=== PATIENT | female | born 1955 | race Caucasian/White ===

== ENCOUNTER 2020-01-12 12:16 | Emergency (ER) | payer MEDICARE ==
[~2020-01-12] VITALS: Ht 172.7 cm; Wt 90.7 kg
--- NOTE | 2020-01-12 12:35 | NUR ---
ED Nurse Note: PT ARRIVED TO ED C/O COUGH, HEADACHES, LOSS OF TASTE AND SMELL FOR 1 WEEK. PT REPORTS SHE WAS EXPOSED TO SOMEONE WITH POSITIVE COVID AT WORK. PT REPORTS SHE HAS A PROSTHETIC RIGHT BREAST DUE TO PREVIOUS BREAST CANCER. PT ON Pulselocker MONITOR AND PLACED IN GOWN
[2020-01-12 12:41] VITALS: BP 153/74
--- NOTE | 2020-01-12 13:00 | NUR ---
ED Nurse Note: COVID TEST SENT TO LAB
--- NOTE | 2020-01-12 13:15 | NUR ---
ED Nurse Note: XRAY AT BEDSIDE
[2020-01-12] MEDS ORDERED: PREDNISONE20 MG ORAL (13:35)
[2020-01-12] MEDS ORDERED: ZITHROMAX250 MG ORAL (13:35)
[2020-01-12] MEDS ORDERED: ALBUTEROL SULF8.5 G1 INH (13:35)
[2020-01-12] MEDS ORDERED: PROMETHAZINE-C118 M1 ORAL (13:35)
[2020-01-12 13:42] VITALS: BP 144/79
--- NOTE | 2020-01-12 13:42 | NUR ---
ER DISCHARGE NOTE: Patient is cleared to be discharged per ERMD, pt is aox4, on room air, with stable vital signs. pt was given dc and prescription instructions, pt was able to verbalize understanding, pt id band REMOVED. pt is able to ambulate with steady gait. pt took all belongings.
--- NOTE | 2020-01-12 14:53 | Emergency Room Report ---
History of Present Illness General Chief Complaint: General Complaint Source: Patient Present Illness HPI 64-year-old female presents complaining of cough and body aches for the last few days. Pain is dull, 8 out of 10, nonradiating. States she also lost her sense of smell. States she was recently exposed to someone that is Covid positive. Denies chest pain or shortness of breath. No other aggravating relieving factors. 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 Patient History Past Medical History: other - breast ca Past Surgical History: none Pertinent Family History: none Social History: Denies: smoking, alcohol use, drug use Now: No Immunizations: UTD Reviewed Nursing Documentation: PMH: Agreed; PSxH: Agreed Nursing Documentation-PMH Past Medical History: No History, Except For Hx Cancer: Yes - right breast Review of Systems All Other Systems: negative except mentioned in HPI Physical Exam Vital Signs Date Time Temp Pulse Resp B/P (MAP) Pulse Ox O2 Delivery O2 Flow Rate FiO2 01/12/20 12:36 98.4 76 20 152/74 (100) 100 Room Air Sp02 EP Interpretation: reviewed, normal General Appearance: no apparent distress, alert, GCS 15, non-toxic Head: normocephalic, atraumatic Eyes: bilateral eye normal inspection, bilateral eye PERRL ENT: hearing grossly normal, normal pharynx, no angioedema, normal voice Neck: full range of motion, supple/symm/no masses Respiratory: chest non-tender, lungs clear, normal breath sounds, speaking full sentences Cardiovascular #1: regular rate, rhythm, no edema Cardiovascular #2: 2+ carotid (R), 2+ carotid (L), 2+ radial (R), 2+ radial (L), 2+ dorsalis pedis (R), 2+ dorsalis pedis (L) Gastrointestinal: normal bowel sounds, non tender, soft, non-distended, no guarding, no rebound Rectal: deferred Genitourinary: normal inspection, no CVA tenderness Musculoskeletal: back normal, normal range of motion, gait/station normal, non- tender Neurologic: alert, motor strength/tone normal, oriented x3, sensory intact, responsive, speech normal Psychiatric: judgement/insight normal, memory normal, mood/affect normal, no suicidal/homicidal ideation Reflexes: 3+ bicep (R), 3+ bicep (L), 3+ tricep (R), 3+ tricep (L), 3+ knee (R), 3+ knee (L) Lymphatic: no adenopathy Medical Decision Making Diagnostic Impression: Primary Impression: Upper respiratory infection Qualified Codes: J06.9 - Acute upper respiratory infection, unspecified ER Course Hospital Course 64-year-old female presents with cough, body aches, loss of smell Differential diagnoses include: URI, pharyngitis, otitis media, asthma Clinical course Patient placed on stretcher. Isolation. I wore full PPE. Lungs clear. No signs of distress. Chest x-ray no focal consolidation. I discussed findings with patient. Vitals stable. No hypoxia. Discussed the possibility of Covid given presentation. We will check a Covid swab. Will return in 48 hours the results. In the meanwhile I recommend Strict isolation precautions. Will prescribe antibiotics, steroids, inhaler, cough medication. I also recommend purchasing a pulse oximeter. If her oxygen level drops below 92% she needs to return to the ED Diagnosis - URI Stable and discharged home. Instructed to followup with PMD. Return to ED if symptoms recur or worsen Chest X-Ray Diagnostic Results Chest X-Ray Diagnostic Results : Chest X-Ray Ordered: Yes # of Views/Limited/Complete: 1 View Indication: Other - cough EP Interpretation: Yes Interpretation: no consolidation, no effusion, no pneumothorax, no acute cardiopulmonary disease Impression: No acute disease Electronically Signed by: Electronically signed by Sravan Hawthorne MD Last Vital Signs Date Time Temp Pulse Resp B/P (MAP) Pulse Ox O2 Delivery O2 Flow Rate FiO2 01/12/20 13:42 98.0 79 17 144/79 100 Room Air Status: improved Disposition: HOME, SELF-CARE Condition: Stable Scripts Albuterol Sulfate* (Albuterol Sulfate Hfa*) 8.5 Gm Hfa.aer.ad 2 PUFF INH Q6H for cough, #1 INH Prov: Sravan Hawthorne MD 01/12/20 Prednisone* (PREDNISONE*) 20 Mg Tablet 40 MG ORAL DAILY, #10 TAB Prov: Sravan Hawthorne MD 01/12/20 Azithromycin* (ZITHROMAX*) 250 Mg Tablet 250 MG ORAL DAILY, #6 TAB 0 Refills Take two tables once daily for 1 day, then one tablet once daily for 4 days. Prov: Sravan Hawthorne MD 01/12/20 Codeine/Promethazine Hcl* (PROMETHAZINE-CODEINE SYRUP*) 118 Ml Syrup 5 ML ORAL Q6H PRN for For Cough, #118 ML 0 Refills Prov: Sravan Hawthorne MD 01/12/20 Referrals: NOT CHOSEN IPA/,REFERRING (PCP) [facility] Patient Instructions: Upper Respiratory Infection, Adult, [id number] Additional Instructions: purchase a pulse oximeter. if your oxygen drops below 92% then you need to return to the ER. your COVID test should be resulted in 48 hours. Sravan Hawthorne MD Jan 12, 2020 14:53
--- NOTE | 2020-01-12 15:56 | Diagnostic Imaging Report ---
Indication: Cough Technique: One view of the chest Comparison: none Findings: Lungs and pleural spaces are clear. The heart size is normal. Impression: Negative
--- NOTE | 2020-01-14 11:25 | NUR ---
ED Nurse Note: PER PT., SHE WANTS TO GET HER COVID RESULT FAX OVER TO
== END 2020-01-12 13:40 | disposition home or self-care (01) ==
LOC: EMR 13:39
DX: U07.1 COVID-19 (principal); J06.9 Acute upper respiratory infection, unspecified; Z85.3 Personal history of malignant neoplasm of breast
CPT/HCPCS: 71045; 99283; U0004

== ENCOUNTER 2020-01-25 22:08 | Emergency (ER) | payer MEDICARE ==
[~2020-01-25] VITALS: Ht 172.7 cm; Wt 90.7 kg
[~2020-01-25 22:08] MED LIST: ALBUTEROL SULF8.5 G1 INH; PREDNISONE20 MG ORAL; PROMETHAZINE-C118 M1 ORAL; ZITHROMAX250 MG ORAL
--- NOTE | 2020-01-25 22:20 | NUR ---
ED Nurse Note: Patient walked into the ED from home with c/o right leg pain onset this afternoon. Pain was rated 7/10, per pt right leg was swollen and hot compared to the other side. pt took ASA 162mg at 2000 today. Pt was tested + COVID and stated she was in bed for 2 weeks. Patient c/o slight SOB after walking but denies /CP, no N/V/D, fever or chills. Pt is AAOX4 and ambulatory. Placed on iso bed.
--- NOTE | 2020-01-25 22:21 | NUR ---
ED Nurse Note: ERMD at bedside
--- NOTE | 2020-01-25 22:32 | Emergency Room Report ---
History of Present Illness General Chief Complaint: Lower Extremity Injury Source: Patient Present Illness HPI This is a 64-year-old female with history of breast cancer status post remission. She tested positive for Covid on January 11. She presents with chief complaint of right leg pain and swelling. Onset today. She says she has been in bed recovering from Covid for the last 2 weeks. Has some weakness with exertion. No fever chills. Slight shortness of breath. No coughing. Her leg pain is 8 out of 10. Worse with palpation. She felt it swollen. Some redness. Radiating up her thigh area. 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 - + 2weeks ago COVID-19 Screening: Positive COVID-19 COVID-19 Testing Source: unk Patient History Past Medical History: see triage record, old chart reviewed Past Surgical History: other Pertinent Family History: none Social History: Denies: smoking Now: No Immunizations: other Reviewed Nursing Documentation: PMH: Agreed; PSxH: Agreed Nursing Documentation-PMH Hx Cancer: Yes - right breast Review of Systems Eye: Denies: eye pain, blurred vision ENT: Denies: ear pain, nose congestion, throat swelling Respiratory: Denies: cough, shortness of breath Cardiovascular: Denies: chest pain, palpitations Gastrointestinal: Denies: abdominal pain, diarrhea, nausea, vomiting Musculoskeletal: Reports: muscle pain; Denies: back pain, joint pain Skin: Denies: rash Neurological: Denies: headache, numbness Endocrine: Denies: increased thirst, increased urine Hematologic/Lymphatic: Denies: easy bruising All Other Systems: negative except mentioned in HPI Physical Exam Vital Signs Date Time Temp Pulse Resp B/P (MAP) Pulse Ox O2 Delivery O2 Flow Rate FiO2 01/25/20 22:13 98.4 74 16 128/64 (85) 96 Room Air Vitals normal Sp02 EP Interpretation: reviewed, normal General Appearance: well appearing, no apparent distress, alert Head: normocephalic, atraumatic Eyes: bilateral eye PERRL, bilateral eye EOMI ENT: hearing grossly normal, normal pharynx Neck: full range of motion, supple, no meningismus Respiratory: chest non-tender, lungs clear, normal breath sounds Cardiovascular #1: regular rate, rhythm, no murmur Gastrointestinal: normal bowel sounds, non tender, no mass, no organomegaly, no bruit, non-distended Musculoskeletal: back normal, normal range of motion, gait/station normal, other - Tenderness to the right calf and medial aspect of thigh. Psychiatric: mood/affect normal Medical Decision Making Diagnostic Impression: Primary Impression: Right leg pain ER Course This patient presents with right leg pain. Reproducible. Negative for DVT. Most likely musculoskeletal pain secondary to deconditioning. No evidence of infection. 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 Last Vital Signs Date Time Temp Pulse Resp B/P (MAP) Pulse Ox O2 Delivery O2 Flow Rate FiO2 01/25/20 22:13 98.4 74 16 128/64 (85) 96 Room Air Status: unchanged Disposition: HOME, SELF-CARE Condition: Stable Scripts Ibuprofen* (MOTRIN*) 600 Mg Tablet 600 MG ORAL Q6H PRN for For Pain, #30 TAB 0 Refills Prov: Adan Restrepo MD 01/25/20 Referrals: NON PHYSICIAN (PCP) Additional Instructions: Follow-up with your doctor in 7 days. Return if worse. Adan Restrepo MD Jan 25, 2020 22:32
--- NOTE | 2020-01-25 22:40 | NUR ---
ED Nurse Note: Blood sent to lab for workup
[2020-01-25 22:50] LABS: BASOPHILS % (AUTO) 0.7 % (0.0-2.0); EOSINOPHILS % (AUTO) 1.1 % (0.0-3.0); HEMATOCRIT 38.4 % (37.0-47.0); HEMOGLOBIN 13.2 G/DL (12.0-16.0); LYMPHOCYTES % (AUTO) 44.7 % (20.0-45.0); MEAN CORPUSCULAR VOLUME 88 FL (80-99); MONOCYTES % (AUTO) 9.1 % (1.0-10.0); NEUTROPHILS % (AUTO) 44.4 % (45.0-75.0); PLATELET COUNT 205 K/UL (150-450); RED BLOOD COUNT 4.35 M/UL (4.20-5.40); RED CELL DISTRIBUTION WIDTH 13.4 % (11.6-14.8); WHITE BLOOD COUNT 5.8 K/UL (4.8-10.8)
[2020-01-25 23:01] LABS: ANION GAP 9 mmol/L (5-15); BLOOD UREA NITROGEN 15 mg/dL (7-18); CALCIUM 8.9 MG/DL (8.5-10.1); CARBON DIOXIDE 27 MMOL/L (21-32); CHLORIDE 104 MMOL/L (98-107); CREATININE 0.8 MG/DL (0.55-1.30); POTASSIUM 3.8 MMOL/L (3.5-5.1); SODIUM 140 MMOL/L (136-145)
[2020-01-25 23:04] LABS: INR 0.9 (0.9-1.1)
--- NOTE | 2020-01-25 23:11 | NUR ---
ED Nurse Note: ENID garcia at bedside
[2020-01-25] MEDS ORDERED: IBUPROFEN600 M1 ORAL (23:33)
[2020-01-25 23:45] VITALS: BP 128/64
--- NOTE | 2020-01-25 23:45 | NUR ---
ER DISCHARGE NOTE: Patient is cleared to be discharged per ERMD, pt is aox4, on room air, with stable vital signs. pt was given dc and prescription instructions, pt was able to verbalize understanding, pt id band and iv site removed without complications. pt is able to ambulate with steady gait. pt took all belongings.
--- NOTE | 2020-01-26 15:29 | Diagnostic Imaging Report ---
Indication: Right leg pain and edema Technique: Grayscale and duplex images of the right lower extremity veins Comparison: None Findings: On the right, grayscale and duplex images demonstrate no evidence of intraluminal thrombus. Normal phasic Doppler waveforms, demonstrating normal augmentation response and no evidence of valvular insufficiency. Greater saphenous vein(s) and tibial veins are patent. Normal compressibility. Impression: Negative for evidence of lower extremity deep venous thrombosis on the right
== END 2020-01-25 23:46 | disposition home or self-care (01) ==
LOC: EMR 22:24
DX: M79.604 Pain in right leg (principal); M79.89 Other specified soft tissue disorders; R53.1 Weakness; Z85.3 Personal history of malignant neoplasm of breast; Z86.19 Personal history of other infectious and parasitic diseases
CPT/HCPCS: 36415; 80048; 85025; 85610; 85730; 93971; 96360; 99284